=== PATIENT | female | born 1965 | race Two or more races ===

== ENCOUNTER 2016-02-26 06:35 | Day surgery (SDC) | payer BC ==
[2016-02-25 17:08] VITALS: BMI 62.5
[~2016-02-26] VITALS: Ht 154.9 cm; Wt 74.0 kg
[2016-02-26] VITALS (11 sets, daily range): BP systolic 97–120; BP diastolic 60–78; PULSE 69–84; RESP 12–20; Ht 154.9 cm; Wt 74.0 kg
[~2016-02-26 06:35] MED LIST: SOD CHLORIDE 0.9% 1,000 ML IV SCH
[2016-02-26] MEDS ORDERED: CEFAZOLIN 2 GM/50 ML (PMX) 50 ML IVPB SCH (07:00)
[2016-02-26] MEDS ORDERED: HYD25 PO (07:36)
[2016-02-26] MEDS ORDERED: QUIN5TAB15 PO (07:36)
[2016-02-26] MEDS ORDERED: FLUT9.9S NASAL (07:36)
[2016-02-26] MEDS ORDERED: LORA10TA3 PO (07:36)
[2016-02-26] MEDS ORDERED: PARO30TA68 PO (07:36)
[2016-02-26] MEDS ORDERED: LIDOCAINE 2% (MDV) 20 ML INJ ONE (07:44)
[2016-02-26] MEDS ORDERED: BUPIVACAINE 0.25% (MPF) 30 ML INJ ONE (07:45)
--- NOTE | 2016-02-26 07:45 | RADRPT ---
PROCEDURE: XR Chest. CLINICAL INDICATION: Preop. Left back mass. TECHNIQUE: Single frontal chest x-ray. COMPARISON: None available. FINDINGS: The cardiomediastinal silhouette is unremarkable. No pneumothorax, pleural effusion or consolidation is seen. No acute osseous abnormality is noted. IMPRESSION: 1. No acute cardiopulmonary abnormality. RPTAT: HFN .Penelope Valles MD, Date Time Electronically viewed and signed by .Penelope Valles MD, on 02/26/2016 07:45 .N/
[2016-02-26] MEDS ORDERED: MIDAZOLAM 1 MG/ML 2 ML INJ ONE (07:50)
[2016-02-26] MEDS ORDERED: PROPOFOL 20 ML ONE (07:50)
[2016-02-26] MEDS ORDERED: FENTAnyl 50 MCG/ML VIAL ONE (07:50)
[2016-02-26 08:06] LABS: CREATININE 0.54 mg/dl (0.44-1.00); POTASSIUM 4.4 mmol/L (3.5-5.1)
[2016-02-26 08:07] LABS: PROTIME 13.2 Sec (12.2-14.2)
[2016-02-26 08:08] LABS: PARTIAL THROMBOPLASTIN TIME 30.1 Sec (25.0-35.0)
[2016-02-26 08:10] LABS: BASOPHILS % 0.5 % (0.0-2.0); EOSINOPHILS # 0.2 10^3/ul (0.0-0.5); EOSINOPHILS % 2.8 % (0.0-7.0); HEMATOCRIT 36.3 % (37.0-47.0); HEMOGLOBIN 12.5 g/dl (12.0-16.0); LYMPHOCYTES # 1.9 10^3/ul (0.8-2.9); LYMPHOCYTES % 27.2 % (15.0-51.0); MEAN CORPUSCULAR HEMOGLOBIN 28.5 pg (29.0-33.0); MEAN CORPUSCULAR HGB CONC 34.5 g/dl (32.0-37.0); MEAN CORPUSCULAR VOLUME 82.8 fl (82.0-101.0); MEAN PLATELET VOLUME 9.8 fl (7.4-10.4); MONOCYTE # 0.5 10^3/ul (0.3-0.9); MONOCYTES % 6.7 % (0.0-11.0); NEUTROPHIL # 4.3 10^3/ul (1.6-7.5); NEUTROPHILS % 62.8 % (39.0-77.0); PLATELET COUNT 290 10^3/UL (140-440); RED BLOOD COUNT 4.38 10^6/ul (4.20-5.40); UNCORRECTED WBC 6.9 10^3/ul (4.8-10.8); WHITE BLOOD COUNT 6.9 10^3/ul (4.8-10.8)
[2016-02-26 08:17] LABS: CALCIUM 9.5 mg/dl (8.4-10.2)
[2016-02-26] MEDS ORDERED: ONDANSETRON 4 MG INJ ONE (08:19)
[2016-02-26] MEDS ORDERED: KETOROLAC 30 MG INJ ONE (08:19)
[2016-02-26] MEDS ORDERED: DEXAMETHASONE 4 MG/ML 1 ML INJ ONE (08:19)
[2016-02-26] MEDS ORDERED: METOCLOPRAMIDE 10 MG INJ ONE (08:19)
[2016-02-26] MEDS ORDERED: CEFAZOLIN 1 GM INJ ONE (08:19)
[2016-02-26 08:21] LABS: CONDITION 1
[2016-02-26] MEDS ORDERED: EPHEDrine SULFATE 50 MG/5 ML SYG ONE (08:29)
[2016-02-26] MEDS ORDERED: MEPERIDINE 25 MG INJ IV PRN (08:30)
[2016-02-26] MEDS ORDERED: EPHEDrine SULFATE 50 MG/5 ML SYG IV PRN (08:30)
[2016-02-26] MEDS ORDERED: HYDROmorphONE (0.2 MG/ML) 10ML SYG IV PRN ×3 (08:30)
[2016-02-26] MEDS ORDERED: DIPHENHYDRAMINE 50 MG INJ IV PRN (08:30)
[2016-02-26] MEDS ORDERED: hydrALAzine 20 MG INJ IV PRN (08:30)
[2016-02-26] MEDS ORDERED: ONDANSETRON 4 MG INJ IV PRN (08:30)
[2016-02-26] MEDS ORDERED: morphine (1 MG/ML) 10ML SYRINGE IV PRN ×3 (08:30)
[2016-02-26] MEDS ORDERED: LABETALOL HCL 20MG INJ IV PRN (08:30)
[2016-02-26] MEDS ORDERED: HYDROCODONE/APAP (5/325) TAB PO ONE (09:00)
--- NOTE | 2016-02-26 11:09 | OPR ---
DATE OF OPERATION: 02/26/2016 INDICATION: This is a 51-year-old female with a back mass. She requests surgical excision. Risks, alternatives, benefits and personnel were discussed with the patient. The patient expressed unders tanding and consents to the operation. PREOPERATIVE DIAGNOSIS: Back mass. POSTOPERATIVE DIAGNOSIS: Back mass. OPERATION PERFORMED: 1. Excision of back mass with an 8 cm sized incision and a 5 x 4 cm sized mass. 2. Localized adjacent tissue transfer with the use of skin flaps. SURGEON: Dr. Cassidy. SPECIMEN: Back mass. COMPLICATIONS: None. ANESTHESIA: General. DESCRIPTION OF PROCEDURE: The patient was taken to the OR and prepped and draped in the usual steri le fashion. Surgical timeout was performed. IV antibiotics were given. A transverse incision was made over the back mass with a 10 blade. Dissection cautery was carried down to the back mass which was circumferentially excised. There was good hemostasis. Due to tissue defect, localized adjacen t tissue transfer with the use of skin flaps was performed. Multilayer closed with interrupted 3-0 Vicryl and skin malcolm. Local anesthesia was injected. Dry dressings were applied. Dictated By: MACK SHIELDS/GARY Conf#: [id number] DID#: [id number]
--- NOTE | 2016-03-01 10:57 | RADRPT ---
Vent Rate: 54 bpm RR Interval: 0 msec WA Interval: 130 msec QRS Duration: 96 msec QT Interval: 424 msec QTC Interval: 402 msec P-R-T [place]: 46 - 38 - 35 degrees Sinus bradycardia Otherwise normal ECG Electronically Signed By: Maicol Pierce [id number]
== END 2016-02-26 09:58 | disposition home or self-care (01) ==
LOC: SDS 06:35
PROVIDERS: ATTEND Surgery
DX: D17.1 Benign lipomatous neoplasm of skin and subcutaneous tissue of trunk (principal); I10 Essential (primary) hypertension; E78.5 Hyperlipidemia, unspecified
CPT/HCPCS: 14000; 71010; 80048; 84703; 85025; 85610; 85730; 93005; J0690; J1100; J1885; J2175; J2250; J2405; J2765; J3010; Z7512; Z7610; 88307